=== PATIENT | female | born 1950 | race Caucasian/White ===

== ENCOUNTER 2016-04-18 16:28 | Emergency (ER) | payer OTHER ==
[~2016-04-18] VITALS: Ht 162.6 cm; Wt 99.8 kg
--- NOTE | 2016-04-18 17:15 | ED UPPER/LOWER EXTREMITY COMPL ---
History of Present Illness General Chief Complaint: Lower Extremity Problems Stated Complaint: ? DVT LFT LEG Source: patient Exam Limitations: no limitations Vital Signs & Intake/Output Vital Signs & Intake/Output Vital Signs Date Time Temp Pulse Resp B/P Pulse O2 O2 Flow FiO2 Ox Delivery Rate 04/18 1825 98.7 72 20 128/81 99 Room Air Room Air 04/18 1641 97.2 81 18 124/80 100 Room Air Allergies Coded Allergies: iodine (Intermediate, RASH 04/18/16) Uncoded Allergies: PCN (Intermediate, RASH 04/18/16) Allergy Other CRAB/SHELLFISH Triage Note: SENT BY PMD, C/O FEVER, CHILLS, POOR APPETITE X 3 DAYS, WITH LEFT LOWER LEG SWELLING, REDNESS X 3 DAYS. Triage Nurses Notes Reviewed? yes HPI: This patient is a 65-year-old female with a past medical history including hypertension who presented to the emergency department today for evaluation of left lower leg edema and erythema present in by her primary career technical education instructor. The patient reported that on Saturday and Saturday she was feeling, "lethargic, weak, and chills." She reported tactile fevers. The patient did report some slight nausea, but no vomiting. She denied any abdominal pain, constipation, or diarrhea. The patient reported that on Saturday she started to feel better however, she noticed that her left lower leg was getting swollen and red. She reported that it is more painful when she ambulates or when the area is touched. The pain gets up to a 7 out of 10 and is throbbing. The pain is nonradiating and intermittent. The patient denied any numbness or tingling in her extremities. She reported that 2 years ago she had a knee surgery on her left knee done by clinician in [place] she was uncomplicated. She denied a history of any blood clots. The patient denied any cough, hemoptysis, exogenous estrogen use, or any trauma to the area. (SWAPNIL GOLDMAN,DASIA) Reconcile Medications Doxycycline Hyclate (Vibramycin) 100 MG CAPSULE 1 CAP PO BID CELLULITIS (CATRACHITA URIOSTEGUI DO) Past History Travel History Traveled to [place] past 21 day No Medical History Any Pertinent Medical History? see below for history Neurological: NONE EENT: NONE Cardiovascular: hypertension, hyperlipidemia Respiratory: NONE Gastrointestinal: NONE Hepatic: NONE Renal: NONE Musculoskeletal: NONE Psychiatric: NONE Endocrine: NONE Surgical History Surgical History: LEFT KNEE SURGERY Psychosocial History What is your primary language Occitan Tobacco Use: Never used ETOH Use: occasional use Family History Hx Contributory? No (DASIA KRAFT PA-C) Review of Systems Review of Systems Constitutional: Reports: see HPI. EENTM: Reports: no symptoms. Respiratory: Reports: no symptoms. Cardiovascular: Reports: no symptoms. Gastrointestinal/Abdominal: Reports: see HPI. Genitourinary: Reports: no symptoms. Musculoskeletal: Reports: no symptoms. Skin: Reports: see HPI. Neurological/Psychological: Reports: no symptoms. Hematologic/Endocrine: Reports: no symptoms. All Other Systems: Reviewed and Negative (DASIA KRAFT PA-C) Physical Exam Physical Exam General Appearance: well developed/nourished, no apparent distress, alert, awake Comments: Well-developed well-nourished person in no acute distress HEENT: Normal EENT exam, head normocephalic, moist mucous membranes Neck: Supple. No lymphadenopathy Back: Antalgic gait Cardiovascular: Regular rate and rhythm with no murmurs, rubs, or gallops Respiratory: Chest nontender. No respiratory distress. Breath sounds clear to auscultation bilaterally with no wheezes, rales, rhonchi Left lower extremity: Non-pitting edema to the lower extremity with overlying erythema. Positive Homans sign. Tender to palpation over the calf. Full range of motion at the knee and ankle. Dorsalis pedis and posterior tibialis pulses 2 + and strong Neuro: Alert oriented x3, motor sensory normal, cranial nerves II through XII grossly intact. Skin: No appreciable rash on exposed skin, skin is warm and dry. Psych: Mood and affect is normal (DASIA KRAFT PA-C) Progress Differential Diagnosis: arterial insufficiency, cellulitis, CHF, compartment syndrome, contusion, DVT, gout, septic arthritis, sprain, tendon injury Plan of Care: Orders Procedure Date/time Status COMPREHENSIVE METABOLIC PANEL 04/18 1709 Complete CBC WITHOUT DIFFERENTIAL 04/18 1708 Complete EKG 04/18 1653 Active Laboratory Tests 04/18/16 1715: Anion Gap 11, Estimated GFR > 60, BUN/Creatinine Ratio 18.6, Glucose 88, Calcium 9.3, Total Bilirubin 0.6, AST 40 H, ALT 45, Alkaline Phosphatase 83, Total Protein 7.3, Albumin 4.0, Globulin 3.3, Albumin/Globulin Ratio 1.2, CBC w Diff NO MAN DIFF REQ, RBC 4.98, MCV 89.4, MCH 29.8, RDW 12.8, MPV 7.7, Gran % 55.4, Lymphocytes % 33.0, Monocytes % 10.1 H, Eosinophils % 1.2, Basophils % 0.3, Absolute Granulocytes 5.6, Absolute Lymphocytes 3.3, Absolute Monocytes 1.0 H, Absolute Eosinophils 0.1, Absolute Basophils 0, PUBS MCHC 33.3 Diagnostic Imaging: Viewed by Me: Ultrasound. Discussed w/RAD: Ultrasound. Radiology Impression: PATIENT: ALIN GARCIA PRESENT AGE: 65 PATIENT ACCOUNT NO: [id number] : 52 LOCATION: [facility] ORDERING PHYSICIAN: DASIA KRAFT PA-C SERVICE DATE: 04/18/16 EXAM TYPE: US - US-UNILATERAL VENOUS DOPPLER EXAMINATION: US TRIPLEX LOWER EXTREMITY, LEFT CLINICAL INFORMATION: Edema and swelling. COMPARISON: None. TECHNIQUE: Color- flow triplex imaging with spectral analysis and compression Doppler were performed on the left lower extremity. FINDINGS: Respiratory variation, normal compression and augmented flow are noted throughout the lower extremity. The visualized common femoral vein, proximal greater saphenous vein, femoral vein, profunda femoral vein, popliteal vein and visualized mid calf venous segments show no evidence of deep venous thrombosis. There is no Nieves's cyst. IMPRESSION : Normal triplex scan without evidence of deep venous thrombosis involving the left lower extremity. DICTATED BY: MARS CARDONA MD DATE/TIME DICTATED:04/18/161803 MENTAL HYGIENE CONSULTANT:MARINA DATE/TIME TRANSCRIBED:04/18/161803 CONFIDENTIAL, DO NOT COPY WITHOUT APPROPRIATE AUTHORIZATION. <Electronically signed in Other Vendor System> SIGNED BY: MARS CARDONA MD 04/18/161807 (SWAPNIL GOLDMAN,DASIA) Departure Departure Disposition: HOME OR SELF CARE Condition: Stable Clinical Impression Primary Impression: Cellulitis Qualifiers: Site of cellulitis: extremity Site of cellulitis of extremity: lower extremity Laterality: left Qualified Code: L03.116 - Cellulitis of left lower limb Referrals: ESTELLA BURLESON (PCP/Family) Additional Instructions: Please take antibiotic as prescribed and for its full duration. Call to follow- up with your primary care physician. You may take [id number] ibuprofen or Motrin for pain. Elevate your leg when possible. Return to the emergency department for any worsening symptoms, spreading of redness, fevers, worsening pain, or for any other concerns. Departure Forms: Customer Survey General Discharge Information Prescriptions: Current Visit Scripts Doxycycline Hyclate (Vibramycin) 1 CAP PO BID #20 CAP (DASIA KRAFT PA-C) PA/KITCHEN ASSISTANT Co-Sign Statement Statement: ED Attending supervision documentation- [] I saw and evaluated the patient. I have also reviewed all the pertinent lab results and diagnostic results. I agree with the findings and the plan of care as documented in the PA's/KITCHEN ASSISTANT's documentation. [X] I have reviewed the ED Record and agree with the PA's/KITCHEN ASSISTANT's documentation. [] Additions or exceptions (if any) to the PAs/KITCHEN ASSISTANT's note and plan are summarized below: [] (CATRACHITA URIOSTEGUI DO
[2016-04-18 17:26] LABS: ABSOLUTE BASOPHIL COUNT 0 /CUMM (0.0-0.2); ABSOLUTE EOSINOPHIL COUNT 0.1 /CUMM (0.0-0.7); ABSOLUTE GRANULOCYTE CT 5.6 /CUMM (1.4-6.5); ABSOLUTE LYMPH COUNT 3.3 /CUMM (1.2-3.4); BASOPHIL % 0.3 % (0.0-2.0); EOSINOPHIL % 1.2 % (0-5); GRANULOCYTE % 55.4 % (42.2-75.2); HEMATOCRIT 44.6 % (37-47); MEAN CORPUSCULAR HGB 29.8 PG (27.0-31.0); MEAN CORPUSCULAR HGB CONC 33.3 G/DL (33.0-37.0); MEAN CORPUSCULAR VOLUME 89.4 FL (81.0-99.0); MEAN PLATELET VOLUME 7.7 FL (7.4-10.4); PLATELET COUNT 236 /CUMM (130-400); RBC DISTRIBUTION WIDTH 12.8 % (11.5-14.5); RED BLOOD CELL CT 4.98 /CUMM (4.20-5.40); WHITE BLOOD CELL COUNT 10.1 /CUMM (4.8-10.8)
--- NOTE | 2016-04-18 18:08 | ULTRASOUND REPORT ---
EXAMINATION: US TRIPLEX LOWER EXTREMITY, LEFT CLINICAL INFORMATION: Edema and swelling. COMPARISON: None. TECHNIQUE: Color-flow triplex imaging with spectral analysis and compression Doppler were performed on the left lower extremity. FINDINGS: Respiratory variation, normal compression and augmented flow are noted throughout the lower extremity. The visualized common femoral vein, proximal greater saphenous vein, femoral vein, profunda femoral vein, popliteal vein and visualized mid calf venous segments show no evidence of deep venous thrombosis. There is no Nieves's cyst. IMPRESSION: Normal triplex scan without evidence of deep venous thrombosis involving the left lower extremity.
[2016-04-18] MEDS ORDERED: VIBRAMYCIN100 MG PO (18:17)
[2016-04-18 18:25] VITALS: BP 128/81
== END 2016-04-18 18:26 ==
LOC: ERH 16:28
PROVIDERS: Physician Assistant
DX: L03.116 Cellulitis of left lower limb (principal); R53.1 Weakness; R50.9 Fever, unspecified; R11.0 Nausea
CPT/HCPCS: 93005; 93010

== ENCOUNTER 2017-10-31 15:22 | Inpatient (IN) | payer OTHER, MEDICARE ==
[~2017-10-31] VITALS: Ht 162.6 cm; Wt 114.9 kg
[~2017-10-31 15:22] MED LIST: VIBRAMYCIN100 MG PO
[2017-10-31 16:29] LABS: ABSOLUTE BASOPHIL COUNT 0 /CUMM (0.0-0.2); ABSOLUTE EOSINOPHIL COUNT 0 /CUMM (0.0-0.7); ABSOLUTE GRANULOCYTE CT 19.6 /CUMM (1.4-6.5); ABSOLUTE MONOCYTE COUNT 0.6 /CUMM (0.10-0.60); BASOPHIL % 0.1 % (0.0-2.0); EOSINOPHIL % 0 % (0-5); HEMATOCRIT 39.9 % (37-47); MEAN CORPUSCULAR HGB 29.7 PG (27.0-31.0); MEAN CORPUSCULAR HGB CONC 33.7 G/DL (33.0-37.0); MEAN CORPUSCULAR VOLUME 88.1 FL (81.0-99.0); MEAN PLATELET VOLUME 7.6 FL (7.4-10.4); PLATELET COUNT 208 /CUMM (130-400); RBC DISTRIBUTION WIDTH 13.2 % (11.5-14.5); RED BLOOD CELL CT 4.53 /CUMM (4.20-5.40); WHITE BLOOD CELL COUNT 22.2 /CUMM (4.8-10.8)
[2017-10-31 16:46] LABS: GRANULOCYTE % 88.1 % (42.2-75.2)
--- NOTE | 2017-10-31 17:35 | ULTRASOUND REPORT ---
EXAMINATION: US TRIPLEX LOWER EXTREMITY, LEFT CLINICAL INFORMATION: 67-year-old woman presenting with left lower extremity pain, swelling, and erythema. Positive fever and chills. Previous history of cellulitis. COMPARISON: Left leg venous ultrasound of 04/18/2016. TECHNIQUE: Color-flow triplex imaging with spectral analysis and compression Doppler were performed on the lower extremity. FINDINGS: Respiratory variation, normal compression and augmented flow are noted throughout the lower extremity. The visualized common femoral vein, superficial femoral vein, profunda femoral vein, popliteal vein and midcalf peroneal and posterior tibial venous segments show no evidence of deep venous thrombosis. There is no Nieves's cyst. IMPRESSION: No evidence of deep venous thrombosis involving the left lower extremity.
--- NOTE | 2017-10-31 18:24 | ED GENERAL ADULT ---
History of Present Illness General Chief Complaint: General Adult Stated Complaint: SIB GFP FOR FEVER AND RED LEG S/P TRAVEL Source: patient Exam Limitations: no limitations Allergies Coded Allergies: iodine (Intermediate, RASH 04/18/16) Penicillins (RASH 10/31/17) crab (RASH 10/31/17) Triage Note: 67 Y/O FEMALE C/O REDNESS AND SWELLING TO LLE X 24 HOURS S/P RECENT TRAVEL IN AIRPLANE AND SHUTTLE. PT STATES SHE BEGAN WITH CHILLS LAST EVENING AND DEVELOPED FEVERS, T-MAX 101.5. MEDICATED WITH 975MG TYLENOL AND ZOFRAN IN TRIAGE PER HOLLIE HOLDEN. Triage Nurses Notes Reviewed? yes Onset: Abrupt Duration: day(s): (2), constant, continues in ED, getting worse Timing: single episode today Injury Environment: home Severity: moderate, severe Severity Numbers: 6 No Modifying Factors: none Associated Symptoms: fever LMP (ages 10-50): unknown : No Patient currently breastfeeds: No HPI: 67-year-old female history of hypertension hyperlipidemia process or evaluation of pain swelling and redness in her left lower extremity. Patient states she first noticed this yesterday and has been getting worse. The redness spread from her mid ankle to just below her knee. She reports that she recently returned from a long plane ride from vacation before symptoms started. She reports she's had fever at home up to 101. She denies any trauma or recent surgery no history of DVT. She is not diabetic. She had a similar situation last year that was treated with doxycycline. No chest pain or shortness of breath. (Rebel BROWNE,Buck) Vital Signs & Intake/Output Vital Signs & Intake/Output Vital Signs Date Time Temp Pulse Resp B/P B/P Pulse O2 O2 Flow FiO2 Mean Ox Delivery Rate 10/31 1920 Room Air 10/31 1811 98.1 78 18 120/56 95 10/31 1542 99.9 10/31 1535 99.9 97 16 134/62 98 Room Air Reconcile Medications Aspirin (Ecotrin*) 81 MG TABLET. 1 TAB PO QPM HEART/BLOOD (Reported) Multiple Vitamin (Multivitamins) 1 EACH TABLET 1 TAB PO QAM SUPPLEMENT ( Reported) (Anila JASSO,Derick Corea) Past History Travel History Traveled to [place] past 21 day No Medical History Any Pertinent Medical History? see below for history Neurological: NONE EENT: NONE Cardiovascular: hypertension, hyperlipidemia Respiratory: NONE Gastrointestinal: NONE Hepatic: NONE Renal: NONE Musculoskeletal: NONE Psychiatric: NONE Endocrine: NONE Surgical History Surgical History: LEFT KNEE SURGERY Psychosocial History What is your primary language Mauritian Tobacco Use: Never used Family History Hx Contributory? No (Buck Sargent) Review of Systems Review of Systems Constitutional: Reports: no symptoms. EENTM: Reports: no symptoms. Respiratory: Reports: no symptoms. Cardiovascular: Reports: no symptoms. GI: Reports: no symptoms. Genitourinary: Reports: no symptoms. Musculoskeletal: Reports: no symptoms. Skin: Reports: see HPI, erythema. Neurological/Psychological: Reports: no symptoms. Hematologic/Endocrine: Reports: no symptoms. Immunologic/Allergic: Reports: no symptoms. All Other Systems: Reviewed and Negative (Buck Sargent) Physical Exam Physical Exam General Appearance: well developed/nourished, no apparent distress, alert, awake Head: atraumatic, normal appearance Eyes: Bilateral: normal appearance, PERRL, EOMI. Ears, Nose, Throat: hearing grossly normal Neck: normal inspection, supple, full range of motion Respiratory: normal breath sounds, chest non-tender, no respiratory distress, lungs clear Cardiovascular: regular rate/rhythm, normal peripheral pulses Peripheral Pulses: 2+ radial (R), 2+ radial (L), 1+ tibialis posterior (R), 1+ tibialis posterior ( L), 1+ dorsalis pedis (R), 1+ dorsalis pedis (L) Gastrointestinal: soft, non-tender Back: normal inspection, normal range of motion, no vertebral tenderness Extremities: normal range of motion, the left lower extremity is diffusely swollen. There is erythema that spreads from the mid ankle to just below the knee. Full range of motion intact neurovascular supply attacked is no focal fluctuant areas no discharge Neurologic/Psych: no motor/sensory deficits, awake, alert, oriented x 3, normal gait, normal mood/affect Skin: intact, normal color, warm/dry Core Measures ACS in differential dx? No CVA/TIA Diagnosis: No Sepsis Present: No Sepsis Focused Exam Completed? Yes (Buck Sargent) ED Sepsis Exam Date of Focused Sepsis Exam: 10/31/17 Time of Focused Sepsis Exam: 1936 Sepsis Cardiac Exam: Regular Rate/Rhythm Sepsis Resp Exam: Rales Sepsis Cap Refill Exam: <2 Sec Sepsis Peripheral Pulse Exam: Normal Sepsis Peripheral Pulse Location: Radial Sepsis Skin Color Exam: Normal for Ethnicity Skin Temp/Moisture Exam: Warm/Dry (Buck Sargent) Progress Differential Diagnoses I considered the following diagnoses in my evaluation of the patient: [ Cellulitis, DVT, rhabdo, abscess, sepsis] Diagnostic Imaging: Viewed by Me: Ultrasound. Discussed w/RAD: Ultrasound. Radiology Impression: PATIENT: ALIN GARCIA PRESENT AGE: 67 PATIENT ACCOUNT NO: [id number] : 52 LOCATION: [facility] ORDERING PHYSICIAN: Buck BROWNE SERVICE DATE: 10/31/17 EXAM TYPE: US - US- DUPLEX VENOUS EXTREM UNI EXAMINATION: US TRIPLEX LOWER EXTREMITY, LEFT CLINICAL INFORMATION: 67-year-old woman presenting with left lower extremity pain, swelling, and erythema. Positive fever and chills. Previous history of cellulitis. COMPARISON: Left leg venous ultrasound of 04/18/2016. TECHNIQUE: Color-flow triplex imaging with spectral analysis and compression Doppler were performed on the lower extremity. FINDINGS: Respiratory variation, normal compression and augmented flow are noted throughout the lower extremity. The visualized common femoral vein, superficial femoral vein, profunda femoral vein, popliteal vein and midcalf peroneal and posterior tibial venous segments show no evidence of deep venous thrombosis. There is no Nieves's cyst. IMPRESSION: No evidence of deep venous thrombosis involving the left lower extremity. DICTATED BY: Christiano Garg MD DATE/TIME DICTATED:10/31/171729 PROJECT MGR:MARINA DATE/TIME TRANSCRIBED:10/31/171729 CONFIDENTIAL, DO NOT COPY WITHOUT APPROPRIATE AUTHORIZATION. <Electronically signed in Other Vendor System> SIGNED BY: Christiano Garg MD 10/31/171734 Initial ED EKG: normal sinus rhythm, no ST T wave changes (Buck Sargent) Plan of Care: Orders Procedure Date/time Status Heart Healthy Diet 11/01 B Active Misc Message 10/31 1932 Active ED Holding Orders 10/31 1932 Active Admit to inpatient 10/31 1932 Active Vital Signs 10/31 1932 Active Code Status 10/31 1932 Active Patient Data 10/31 1901 Active LACTIC ACID 10/31 1837 Active Add-on Test (ER Only) 10/31 1800 Active Add-on Test (ER Only) 10/31 175 Active EKG 10/31 175 Active SERUM OSMOLALITY 10/31 161 Complete MAGNESIUM 10/31 161 Complete CREATINE PHOSPHOKINASE 10/31 153 Active BLOOD CULTURE 10/31 153 Active URINE OSMOLALITY 10/31 153 Active URINE LYTES, SPOT 10/31 153 Active TROPONIN LEVEL 10/31 153 Complete LACTIC ACID 10/31 153 Complete COMPREHENSIVE METABOLIC PANEL 10/31 153 Complete CBC WITHOUT DIFFERENTIAL 10/31 153 Complete Current Medications Sig/Cheikh Start time Last Medication Dose Stop Time Status Admin Ceftriaxone Sodium 1,000 MG ONCE ONE 10/31 1744 CAN (Rocephin) 10/31 174 Laboratory Tests 10/31/17 1613: Anion Gap 9, Estimated GFR > 60, BUN/Creatinine Ratio 15.6, Glucose 106 H, Serum Osmolality 273 L, Lactic Acid 1.0, Calcium 8.2 L, Magnesium 1.7, Total Bilirubin 1.1, AST 34, ALT 37, Alkaline Phosphatase 64, Troponin I 0.02, Total Protein 6.3, Albumin 3.3 L, Globulin 3.0, Albumin/Globulin Ratio 1.1, CBC w Diff NO MAN DIFF REQ, RBC 4.53, MCV 88.1, MCH 29.7, MCHC 33.7, RDW 13.2, MPV 7.6 , Gran % 88.1 H, Lymphocytes % 9.1 L, Monocytes % 2.7, Eosinophils % 0, Basophils % 0.1, Absolute Granulocytes 19.6 H, Absolute Lymphocytes 2.0, Absolute Monocytes 0.6, Absolute Eosinophils 0, Absolute Basophils 0 Microbiology 10/31 161 BLOOD: Blood Culture - RECD 10/31 160 BLOOD: Blood Culture - RECD Patient is here with cellulitis of her left lower extremity. She does have a low-grade temp of 99 9 here. An ultrasound was ordered to rule out DVT and is negative. Labs EKG ordered. Patient has a white count of 22,000. Her potassium is 3 sodium 128. No EKG changes. Lactic acid is negative. IV fluids were ordered patient was started on IV doxycycline she has a penicillin allergy. Due to patient's fever white count of 22,000 showed abnormalities and advanced age she'll be kept in the hospital for further evaluation and treatment of cellulitis. She will require serial labs IV fluids IV antibiotics IV antipyretics follow-up blood cultures. Case discussed with Dr. High he agrees. (Buck Sargent) (Anila JASSO,Derick Corea) Departure Departure Disposition: STILL A PATIENT Condition: Stable Clinical Impression Primary Impression: Cellulitis Qualifiers: Site of cellulitis: extremity Site of cellulitis of extremity: lower extremity Laterality: left Qualified Code: L03.116 - Cellulitis of left lower limb Referrals: Yue Martinez (PCP/Family) Departure Forms: Customer Survey General Discharge Information Admission Note Spoke With: Owen Estrada MD Documentation of Exam: Documentation of any treatments & extenuating circumstances including Concerns Regarding Discharge (functional status, medication knowledge or non-compliance, living conditions, etc.) that warrant an admission rather than observation: [ Serial labs, IV antibiotics, IV fluids, follow-up cultures, antipyretics] (Buck Sargent) PA/ATMOSPHERIC PHYSICIST Co-Sign Statement Statement: ED Attending supervision documentation- [X] I saw and evaluated the patient. I have also reviewed all the pertinent lab results and diagnostic results. I agree with the findings and the plan of care as documented in the PA's/ATMOSPHERIC PHYSICIST's documentation. Patient presents for evaluation of left lower extremity redness and swelling after plane travel. Physical examination reveals edema and erythema of the left lower extremity. [] I have reviewed the ED Record and agree with the PA's/ATMOSPHERIC PHYSICIST's documentation. [] Additions or exceptions (if any) to the PAs/ATMOSPHERIC PHYSICIST's note and plan are summarized below: [] (Derick High MD) Critical Care Note Critical Care Note Critical Care Time: non-applicable (Buck Sargent)
[2017-10-31] MEDS ORDERED: MULTIVITAMINS1 EAC9 PO (18:56)
[2017-10-31] MEDS ORDERED: ASPIRIN EC81 M1 PO (18:56)
--- NOTE | 2017-10-31 19:42 | History & Physical ---
Moises De La Cruz 10/31/171940: General Information and HPI MD Statement: I have seen and personally examined MIRANDA GARCIA and documented this H&P. The patient is a 67 year old F who presented with a patient stated chief complaint of [LLE swelling x24 hours]. Source of Information: patient, old records Exam Limitations: no limitations History of Present Illness: Miranda Garcia is a 67 Y/O female PMH HTN HLD c/o redness and swelling to LLE x 24 hours s/p recent travel in airplane and shuttle. Pt states she began with chills last evening and developed fevers but did not record them at home as her thermometer was broken. States her leg was swollen and tender, red, yesterday as well at onset of chills. Denies any recent punctures/lacerations; says she has not recently shaved her legs. Was recently in [place], a 2.5 hour flight to [place] and came back on Saturday although was sitting in plane for longer due to weather. She went to her PCP office the day of admission as her symptoms worsened over 24 hours, where t-max was 101.5 and they sent her to the ED for evaluation. Has a history of Cellulitis to LLE most notably treated in Apr 10 with doxycycline as she has an allergy to penicillins. Also states that her HCTZ dose was doubled recently as her blood pressure was no longer well controlled per PCP. PMH: as above Allergies: PCN (rash), Iodine, Crab MEDS: ASA 81mg, MVI SX: L knee surgery 3 years ago ; Back surgery ; Neck Surgery Fam HX: noncontributory SOC: denies smoking, drinks wine socially, no illicit drug use, was a restaurant rink rat retired now ROS Positive for: Chills, Fevers, Redness, Warmth, Swelling, Decreased sensation Negative for: Drainage, Purulence, Chest pain, SOB, N/V/D Allergies/Medications Allergies: Coded Allergies: iodine (Intermediate, RASH 04/18/16) Penicillins (RASH 10/31/17) crab (RASH 10/31/17) Past History Travel History Traveled to [facility] past 21 day No Medical History Neurological: NONE EENT: NONE Cardiovascular: hypertension, hyperlipidemia Respiratory: NONE Gastrointestinal: NONE Hepatic: NONE Renal: NONE Musculoskeletal: NONE Psychiatric: NONE Endocrine: NONE Surgical History Surgical History: LEFT KNEE SURGERY Review of Systems Review of Systems Constitutional: Reports: see HPI, chills, fever. Exam & Diagnostic Data Last 24 Hrs of Vital Signs/I&O Vital Signs Date Time Temp Pulse Resp B/P B/P Pulse O2 O2 Flow FiO2 Mean Ox Delivery Rate 10/31 2228 Room Air 10/31 2215 98.4 82 17 114/54 96 Room Air 10/31 2215 98.4 82 17 114/54 96 Room Air 10/31 1920 Room Air 10/31 1811 98.1 78 18 120/56 95 10/31 1542 99.9 10/31 1535 99.9 97 16 134/62 98 Room Air Intake & Output 11/01 0800 11/01 0000 10/31 1600 Intake Total 1110 Output Total 700 Balance 410 Intake, IV 1110 Output, Urine 700 Patient 253 lb 225 lb Weight Weight Bed scale Reported by Patient Measurement Method Physical Exam General Appearance Alert, Oriented X3, Cooperative, No Acute Distress Skin LLE redness, swelling, tenderness; no discharge noted Skin Temp/Moisture Exam: Warm/Dry HEENT Atraumatic Neck Supple Cardiovascular Regular Rate, Normal S1, Normal S2 Lungs Clear to Auscultation, Normal Air Movement Abdomen Soft, No Tenderness Neurological Strength at 5/5 X4 Ext, decreased sensation LLE medial lateral aspects of foot Assessment/Plan Assessment: Miranda Garcia is a 67 Y/O female PMH HTN HLD c/o redness and swelling to LLE x 24 hours s/p recent travel in airplane and shuttle. Pt states she began with chills last evening and developed fevers but did not record them at home as her thermometer was broken. States her leg was swollen and tender, red, yesterday as well at onset of chills. Tmax of 101.5 at PCPs office. Is admitted for treatment of LLE cellulitis. Problem list/Assessment/Hospital Course: #Sepsis 2/2 LLE cellulitis (leukocytosis, fever at home, source of infection), resolved on admission #Left lower extremity nonpurulent cellulitis #Hypotonic hyponatremia, likely from dehydration 2/2 fever at home + use of HCTZ #Hypokalemia, unknown etiology #PMH of HTN, HLD #LLE Cellulitis -Pt has penicillin allergy, thus is on IV doxycycline -F/u CBC, blood cultures -ID consult in AM per primary teams discretion #Hyponatremia -We will continue bolus 1+ gentle hydration 100 cc/h -We will check serum osmole, urine lites, urine osm. - Continue all home meds except holding HCTZ till sodium normalizes. DVT prophylaxis Pharm PPX + ALPS Regular Diet IV Access: Peripheral IV Full Code Dispo: Home As Ranked By This Provider Problem List: 1. Cellulitis Qualifiers Site of cellulitis: extremity Site of cellulitis of extremity: lower extremity Laterality: left Qualified Code: L03.116 - Cellulitis of left lower limb Core Measures/Misc (12/09) Acute Coronary Syndrome ACS Diagnosis: No Congestive Heart Failure Congestive Heart Failure Diagnosis No Cerebrovascular Accident CVA/TIA Diagnosis: No VTE (View Protocol) VTE Risk Factors Age>40 No Mechanical VTE Prophylaxis d/t N/A MechProphylax Ordered No VTE Pharm Prophylaxis d/t NA PharmProphylax ordered Sepsis (View protocol) Sepsis Present: No (resolved prior to admission) If YES complete Sepsis Event Note If YES complete Sepsis Event Note Aileen Diaz 10/31/172028: General Information and HPI Allergies/Medications Home Med list Aspirin (Ecotrin*) 81 MG TABLET.DR 1 TAB PO QPM HEART/BLOOD (Reported) Hydrochlorothiazide 12.5 MG TABLET 2 TAB PO DAILY BP (Reported) Meloxicam (Mobic) 7.5 MG TABLET 1 TAB PO DAILY PRN PAIN/INFLAMMATION ( Reported) Metoprolol Succ XL (Toprol XL) 25 MG TAB 1 TAB PO DAILY HEART/BP (Reported) Multiple Vitamin (Multivitamins) 1 EACH TABLET 1 TAB PO QAM SUPPLEMENT ( Reported) Simvastatin (Zocor*) 20 MG TABLET 1 TAB PO DAILY CHOLESTEROL (Reported) Tramadol HCl 50 MG TABLET 1 TAB PO BID PRN PAIN (Reported) Core Measures/Misc (12/09) Sepsis (View protocol) If YES complete Sepsis Event Note If YES complete Sepsis Event Note Resident Review Statement Resident Statement: examined this patient, discussed with biomedical engineering internship, agreed with biomedical engineering internship, discussed with family, reviewed EMR data (avail), discussed with nursing , discussed with case mgmt, reviewed images, amended to note Other Findings: Ms. Garcia is a 67yo F w/ PMH of HTN, HLD, penicillin allergy, presented to ER cc of pain/swelling/redness of her LLE x 2 days and worseing by spreading from her mid-ankle to below her knee. She endorse a long flight >4hrs from vacation before symptoms started. SHe also had a fever of 101.2 at PCP's office however was not spiking a fever in ER. Rest of history per HPI above During our clinical interaction, patient denied sick contacts, lightheadedness/ diaphoresis/night sweat/weight change/cough/SOB/Chest Pain/Palpitation/Abdominal pain/CVA tenderness/bowel movement or urinary abnormality, or other skin/ musculoskeletal/neurological/mood disorders, or dietary/appetite change. On admission, Vitals: Stable afebrile, tachycardia 97-78, RR 18, BP 120/56, 95% on room air Physical exam as above. Pertinent findings include LLE diffuse redness and erythematous skin without noticeable breakdown/cut, tender on palpation around 5 -6/10, sensations mildly decreased however not lost. BLEs strength grossly intact. -CBC: Leukocytosis 22.2, otherwise stable, granulocytosis 88.1% -CMP: Hyponatremia 128, hypokalemia 3.0, otherwise unremarkable -UA/Microbiology: No previous positive culture in our system. Y -Imagings: Ultrasound has ruled out DVT -EKG: NSR w/o significant ST-T abnormalities, unchanged from previous. -Last Echo: No previous echo -Interventions in ER: Doxycycline IV 1, normal saline bolus 1, Zofran/acetaminophen/K-Dur Problem list/Assessment/Hospital Course: #Sepsis 2/2 LLE cellulitis (leukocytosis, fever at home, source of infection), resolved on admission #Left lower extremity nonpurulent cellulitis #Hypotonic hyponatremia, likely from dehydration 2/2 fever at home + use of HCTZ #Hypokalemia, unknown etiology #PMH of HTN, HLD - Admit to general medicine - Vitals per protocol, monitor I&O per protocol. - PT/OT in the AM per primary team -We will continue bolus 1+ gentle hydration 100 cc/h -We will check serum osmole, urine lites, urine osm. - Start doxycycline as patient has penicillin allergy and taper per clinical course. - Continue all home meds except holding HCTZ till sodium normalizes. -Consider ID consult in a.m. per primary team if needed - Pending cultures including blood. - Pain per pathway DVT prophylaxis Pharm PPX + ALPS Regular Diet IV Access: Peripheral IV Full Code Dispo: Owen Belle MD 11/01/17 0547: Core Measures/Misc (12/09) Sepsis (View protocol) If YES complete Sepsis Event Note If YES complete Sepsis Event Note Attending MD Review Statement Attending Statement Attending MD Statement: examined this patient, discuss w/resident/PA/CORPORATE SECURITIES RESEARCH ANALYST, agreed w/resident/PA/CORPORATE SECURITIES RESEARCH ANALYST Attending Assessment/Plan: Patient is seen and examined independently by me. Care plan discussed with biomedical field service engineer and resident. I agree with the physical exam findings and plan of care as outlined above with the following changes and additions. 67 yo F with history of HTN on HCTZ, HLD, left LE cellulitis in 03/2016 treated with doxycycline, presented with left leg redness and swelling for one day. Redness extending from left ankle to left knee. There is no obvious cuts, skin break or insect bite. She has fever and chills at home but did not check temp at home. She is noted to have Temp of 101.5 at PCP office and sent to ED for evaluation. She has recent travel to [place] and returned on Saturday. Her HCTZ dose was doubles a month ago. On exam, she has erythema, warmth and edema extending from left ankle to left knee. In the ED, Tmax 99.9. WBC 22.2. Na 128. K 3.0. BUN/Cr 14/0.9. Left LE Doppler shows no DVT. EKG shows NSR at [address]-T changes. Patient is admitted to [facility] for left LE cellulitis, hyponatremia and hypokalemia in the setting of increasing HCTZ dose. Check blood cultures. Start doxycycline. Hold HCTZ. Patient got 1 L of NS and KCL 40 eEq PO in the ED. Oral fluid restriction. Follow Na and K. Owen Estrada MD FACP
[2017-10-31] MEDS ORDERED: TRAMADOL HCL50 M1 PO (19:45)
[2017-10-31] MEDS ORDERED: HYDROCHLOROTH12.5 M2 PO (19:45)
[2017-10-31] MEDS ORDERED: MOBIC7.5 M1 PO (19:45)
[2017-10-31] MEDS ORDERED: ZOCOR20 M1 PO (19:46)
[2017-10-31] MEDS ORDERED: TOPROL XL25 M1 PO (19:46)
[2017-10-31 22:15] VITALS: BP 114/54
[2017-11-01 06:42] VITALS: BP 116/70
[2017-11-01 07:46] LABS: ABSOLUTE BASOPHIL COUNT 0.1 /CUMM (0.0-0.2); ABSOLUTE EOSINOPHIL COUNT 0 /CUMM (0.0-0.7); ABSOLUTE GRANULOCYTE CT 13.6 /CUMM (1.4-6.5); ABSOLUTE MONOCYTE COUNT 0.7 /CUMM (0.10-0.60); BASOPHIL % 0.4 % (0.0-2.0); EOSINOPHIL % 0 % (0-5); GRANULOCYTE % 83.5 % (42.2-75.2); MEAN CORPUSCULAR HGB CONC 33.4 G/DL (33.0-37.0); MEAN CORPUSCULAR VOLUME 89.8 FL (81.0-99.0); MEAN PLATELET VOLUME 8.5 FL (7.4-10.4); PLATELET COUNT 177 /CUMM (130-400); RBC DISTRIBUTION WIDTH 13.3 % (11.5-14.5); RED BLOOD CELL CT 4.12 /CUMM (4.20-5.40)
--- NOTE | 2017-11-01 08:52 | PN- Housestaff ---
Robert Rebolledo 11/01/17 0844: Subjective Follow-up For: LL cellulitis, Complaints: Mild pain in left leg on ambulation Subjective: Patient seen and examined at bed. There is no overnight event.Her pain in the left leg subsided compared to yesterday. She complained mild pain in ambulation. She said she had a fever and shivering episodes but after Tylenol subsided now. She denies abdominal pain, burning micturition, palpitation, chest pain, shortness, diarrhea. Review of Systems Constitutional: Reports: see HPI. Objective Last 24 Hrs of Vital Signs/I&O Vital Signs Date Time Temp Pulse Resp B/P B/P Pulse O2 O2 Flow FiO2 Mean Ox Delivery Rate 11/02 1450 97.8 75 18 120/80 95 Room Air 11/02 0838 74 133/63 11/02 0706 98.2 74 18 133/63 98 Room Air 11/01 2129 98.6 85 18 117/72 97 Room Air Intake & Output 11/02 1600 11/02 0800 11/02 0000 Intake Total 6318 881 7508 Output Total Balance 5691 135 8938 Intake, IV 525 600 525 Intake, Oral 650 120 480 Physical Exam General Appearance: Alert, Oriented X3, Cooperative, No Acute Distress Assessment/Plan Assessment: 67 year of age female with past medical history of HTN, HLD, Pencillin allergy presented to emergency departement with chief complaint of redness and LLE swelling. Redness from ankle to thigh since 24 hours. She correlate it with recent history of travel in airplane and shuttle for 22 hour. At the time of presentaion to PCP office her Tmax was 101.5F. Problem list/Assessment/: =Sepsis LLE cellulitis =Left lower extremity nonpurulent cellulitis = Hypotonic hyponatremia =PMH of HTN, HLD =LLE Cellulitis -Pt has penicillin allergy, thus is on IV doxycycline. She was also treated for cellulitis in 2017 with doxycyclin. -F/u CBC, blood cultures -ID consult =Hyponatremia -Gentle hydration done in ER will give castañeda fluid as needed. -We will check serum osmole, urine lites, urine osm. - Continue all home meds except holding HCTZ till sodium normalizes. =Hyponatremia: Its may be due to fever, HCTZ. Gentle hydration will cover it. =GI/DVT prophylaxis =Regular Diet =Full Code Problem List: 1. Cellulitis Pain Ratin Pain Location: n/a Pain Goal: Remain pain free Pain Plan: n/a Tomorrow's Labs & Rationales: n/a [place] 11/01/17 1025: Attending MD Review Statement Attending Statement Attending MD Statement: examined this patient, discuss w/resident/PA/CAN REFORMING MACHINE OPERATOR, agreed w/resident/PA/CAN REFORMING MACHINE OPERATOR, discussed with family, reviewed EMR data (avail), discussed with nursing, discussed with case mgmt, reviewed images, amended to note Attending Assessment/Plan: 67 yo F with history of HTN on HCTZ, HLD, left LE cellulitis in 03/2016 treated with doxycycline, presented with left leg redness and swelling for one day. Redness extending from left ankle to left knee. On exam, she has erythema, warmth and edema extending from left ankle to left knee. WBC 22, Tmax 102.4 Left LE Doppler shows no DVT. Patient is admitted to [facility] for left LE cellulitis meeting SIRS criteria in the setting of increasing HCTZ dose, continue iv abx, Follow blood cultures. Montitor labs. Hypertension c/w metoprolol, monitor bp Hyponatremia with improvement: Held HCTZ. Na 130 BMI 43.5 obesity. Avised dietary and lifestyle modifications gi/dvt prophyalxis full code
[2017-11-01 09:20] LABS: WHITE BLOOD CELL COUNT 16.3 /CUMM (4.8-10.8)
[2017-11-01 14:41] VITALS: BP 122/76
[2017-11-01 21:29] VITALS: BP 117/72
[2017-11-02 07:06] VITALS: BP 133/63
[2017-11-02 08:54] LABS: ABSOLUTE BASOPHIL COUNT 0 /CUMM (0.0-0.2); ABSOLUTE EOSINOPHIL COUNT 0.1 /CUMM (0.0-0.7); ABSOLUTE GRANULOCYTE CT 5.4 /CUMM (1.4-6.5); ABSOLUTE LYMPH COUNT 2.5 /CUMM (1.2-3.4); ABSOLUTE MONOCYTE COUNT 0.8 /CUMM (0.10-0.60); BASOPHIL % 0.6 % (0.0-2.0); EOSINOPHIL % 1.7 % (0-5); HEMATOCRIT 35.7 % (37-47); MEAN CORPUSCULAR HGB 30.2 PG (27.0-31.0); MEAN CORPUSCULAR HGB CONC 33.3 G/DL (33.0-37.0); MEAN CORPUSCULAR VOLUME 90.6 FL (81.0-99.0); MEAN PLATELET VOLUME 8.5 FL (7.4-10.4); PLATELET COUNT 168 /CUMM (130-400); RBC DISTRIBUTION WIDTH 13.1 % (11.5-14.5); RED BLOOD CELL CT 3.94 /CUMM (4.20-5.40); WHITE BLOOD CELL COUNT 8.9 /CUMM (4.8-10.8)
--- NOTE | 2017-11-02 09:16 | PN- Housestaff ---
Louisa Baires 11/02/17 0916: Subjective Follow-up For: LLE cellulitis Subjective: Patient was seen and examined at bedside. She was concerned that the swelling in her leg has increased and wanted to know her labs to see if the antibiotics were working. She complained of nausea before her breakfast in the morning. She denies fever, chills, plapitations, vomiting, chest pain or shortness of breath. Review of Systems Constitutional: Reports: see HPI. Objective Last 24 Hrs of Vital Signs/I&O Vital Signs Date Time Temp Pulse Resp B/P B/P Pulse O2 O2 Flow FiO2 Mean Ox Delivery Rate 11/02 1450 97.8 75 18 120/80 95 Room Air 11/02 0838 74 133/63 11/02 0706 98.2 74 18 133/63 98 Room Air 11/01 2129 98.6 85 18 117/72 97 Room Air Intake & Output 11/02 1600 11/02 0800 11/02 0000 Intake Total 9968 703 5670 Output Total Balance 0657 290 8795 Intake, IV 525 600 525 Intake, Oral 650 120 480 Physical Exam General Appearance: Alert, Oriented X3, Cooperative, No Acute Distress Skin: No Rashes, No Breakdown, Diffuse erythema and swelling on LLE, not tender to touch Neck: Supple Cardiovascular: Regular Rate, Normal S1 Lungs: Clear to Auscultation Abdomen: Normal Bowel Sounds, Soft, No Tenderness Assessment/Plan Assessment: Miranda Hare is a 67 Y/O female PMH HTN HLD c/o redness and swelling to E is admitted for LLE cellulitis. On exmaination, LLE is swollen and erythematous. She states that the affected area is essentially numb. She also reports occassional parathesias in the leg. Problem list/Assessment/Hospital Course: 1.Sepsis 2/2 LLE cellulitis (leukocytosis, fever at home, source of infection), resolved on admission 2.Left lower extremity nonpurulent cellulitis 3,Hypotonic hyponatremia, likely from dehydration 2/2 fever at home + use of HCTZ 4.Hypokalemia, unknown etiology 5.PMH of HTN, HLD 1.LLE Cellulitis -Pt has penicillin allergy, thus is on IV doxycycline -CBC down to 8.0 -Blood cultures came back negative 2.Hyponatremia -We will discontue the fluids since the patient is earing and drinking well. -Na is 137 today -Continue all home meds except holding HCTZ till sodium normalizes. DVT prophylaxis Pharm PPX + ALPS Regular Diet IV Access: Peripheral IV Full Code Dispo: Home Problem List: 1. Cellulitis Pain Ratin Pain Location: LLE Pain Goal: Pain 4 or less Pain Plan: pathway Tomorrow's Labs & Rationales: cbc and bep Ken JASSO,Amir 11/02/17 1544: Attending MD Review Statement Attending Statement Attending MD Statement: examined this patient, discuss w/resident/PA/METAL WIRE TECHNICIAN, agreed w/resident/PA/METAL WIRE TECHNICIAN, reviewed EMR data (avail), discussed with nursing Attending Assessment/Plan: pt was seen and evaluated. Chart reviewed. Reports doing better. LE swelling sl improving on current meds. --replete lytes, switch to PO abx --advised to elevate legs --rest of the plan as per resident's note
[2017-11-02 14:50] VITALS: BP 120/80
[2017-11-02 20:59] VITALS: BP 130/80
[2017-11-03 06:43] VITALS: BP 137/67
[2017-11-03 08:25] LABS: ABSOLUTE BASOPHIL COUNT 0.1 /CUMM (0.0-0.2); ABSOLUTE EOSINOPHIL COUNT 0.2 /CUMM (0.0-0.7); ABSOLUTE GRANULOCYTE CT 3.9 /CUMM (1.4-6.5); ABSOLUTE LYMPH COUNT 2.9 /CUMM (1.2-3.4); ABSOLUTE MONOCYTE COUNT 0.7 /CUMM (0.10-0.60); BASOPHIL % 0.8 % (0.0-2.0); EOSINOPHIL % 2.3 % (0-5); HEMATOCRIT 34.5 % (37-47); MEAN CORPUSCULAR HGB 30.6 PG (27.0-31.0); MEAN CORPUSCULAR VOLUME 89.9 FL (81.0-99.0); MEAN PLATELET VOLUME 8.3 FL (7.4-10.4); PLATELET COUNT 206 /CUMM (130-400); RBC DISTRIBUTION WIDTH 13.3 % (11.5-14.5); RED BLOOD CELL CT 3.83 /CUMM (4.20-5.40); WHITE BLOOD CELL COUNT 7.7 /CUMM (4.8-10.8)
--- NOTE | 2017-11-03 09:02 | PN- Housestaff ---
Louisa Baires 11/03/17 0902: Subjective Follow-up For: LLE Cellulitis Subjective: Patient was seen and examined at bedside. She was sititng up with her leg elevated. She reports that her leg looks a lot better but the swelling is incresing. She also reports numbness in her leg as compared to the right leg. She also complains that her leg turns purple if she stands up and tries to walk around. However, she denies fever, chills, nausea, vomiting, chest pain, shortness of breath. Review of Systems Constitutional: Reports: see HPI. Objective Last 24 Hrs of Vital Signs/I&O Vital Signs Date Time Temp Pulse Resp B/P B/P Pulse O2 O2 Flow FiO2 Mean Ox Delivery Rate 11/03 1418 98.2 86 17 148/80 96 Room Air 11/03 0825 86 146/90 11/03 0643 98.4 77 18 137/67 97 Room Air 11/02 2059 98.1 80 16 130/80 98 Room Air Intake & Output 11/03 1600 11/03 0800 11/03 0000 Intake Total 1120 Output Total Balance 1120 Intake, IV 230 Intake, Oral 890 Physical Exam General Appearance: Alert, Oriented X3, Cooperative, No Acute Distress Skin: erythema in the LLE improved from yestreday. Swelling 3+ Neck: Supple Cardiovascular: Regular Rate, Normal S1, Normal S2 Lungs: Clear to Auscultation Abdomen: Normal Bowel Sounds, Soft, No Tenderness Assessment/Plan Assessment: Miranda Hare is a 67 Y/O female PMH HTN HLD c/o redness and swelling to [facility] is admitted for LLE cellulitis. On exmaination, LLE is swollen and erythematous. She states that the affected area is essentially numb. She also reports occassional parathesias in the leg. Problem list/Assessment/Hospital Course: 1.Sepsis 2/2 LLE cellulitis (leukocytosis, fever at home, source of infection), resolved on admission 2.Left lower extremity nonpurulent cellulitis 3,Hypotonic hyponatremia, likely from dehydration 2/2 fever at home + use of HCTZ 4.Hypokalemia, unknown etiology 5.PMH of HTN, HLD 1.LLE Cellulitis -Pt has penicillin allergy, thus is on IV doxycycline -WBC down to 7.7 -Blood cultures came back negative -We will observe her for one more day for swelling and parathesia in her leg 2.Hyponatremia -We will discontue the fluids since the patient is earing and drinking well. -Na is 40 today -Continue all home meds except holding HCTZ till sodium normalizes. She is likely to be discharged tomorrow. DVT prophylaxis Pharm PPX + ALPS Regular Diet IV Access: Peripheral IV Full Code Dispo: Home Problem List: 1. Cellulitis 2. Hyponatremia Pain Ratin Pain Location: LLE Pain Goal: Pain 4 or less Pain Plan: pathway Tomorrow's Labs & Rationales: cbc and bep Ken JASSO,Amir 11/03/17 1318: Attending MD Review Statement Attending Statement Attending MD Statement: examined this patient, discuss w/resident/PA/COMPLIANCE AUDITOR, agreed w/resident/PA/COMPLIANCE AUDITOR, reviewed EMR data (avail), discussed with nursing Attending Assessment/Plan: Pt was seen and evalauted. Chart reviewed. remains afebrile, WBC stable --cont abx course --likely d/c in am --advised to keep leg elevated --rest of the plan as per resident's note
[2017-11-03 14:18] VITALS: BP 148/80
[2017-11-03 20:44] VITALS: BP 124/88
[2017-11-04 06:58] VITALS: BP 150/80
[2017-11-04 08:32] VITALS: BP 138/78
--- NOTE | 2017-11-04 08:39 | PN- Housestaff ---
Robert Rebolledo 11/04/17 0835: Subjective Follow-up For: Left lower extremity cellulitis Subjective: Patient seen and examined at bedside. She woke up when I entered the room. She is complaining of pain in calf muscles of the left leg on palpation. She has been no active complaint. She denies fever, chills, chest pain, cough, diarrhea , burning micturition. Review of Systems Constitutional: Reports: see HPI. Objective Last 24 Hrs of Vital Signs/I&O Vital Signs Date Time Temp Pulse Resp B/P B/P Pulse O2 O2 Flow FiO2 Mean Ox Delivery Rate 11/04 0832 68 138/78 11/04 0658 96.0 80 20 150/80 96 Room Air Intake & Output 11/04 1600 11/04 0800 11/04 0000 Intake Total 600 120 240 Output Total Balance 600 120 240 Intake, Oral 600 120 240 Physical Exam General Appearance: Alert, Oriented X3, Cooperative, No Acute Distress Assessment/Plan Assessment: 67 year of age female with past medical history of HTN, HLD, Pencillin allergy presented to emergency departement with chief complaint of redness and LLE swelling. Redness from ankle to thigh since 24 hours. She correlate it with recent history of travel in airplane and shuttle for 22 hour. At the time of presentaion to PCP office her Tmax was 101.5F. Problem list/Assessment/: =Left lower extremity nonpurulent cellulitis = Hypotonic hyponatremia =PMH of HTN, HLD =LLE Cellulitis -Pt has penicillin allergy, thus is on IV doxycycline. She was also treated for cellulitis in 2017 with doxycyclin. She is now on oral doxycycline for 7 days. Leukocyte trending down, fever subsided, there is no pain. =Hyponatremia -Hyponatremia subsided, it was may be due to a HCTZ. HCTZ was stopped, patient consult regarding new antihypertensive on outpatient basis by her primary care physician -Patient will be discharged to home today after PT evaluation. -Patient counseled if left leg swelling aggravated, painful, numbness, paresthesia and please seek medical attention -Follow-up with PCP in 1 week -Continue others medication -Keep left leg elevated. -Full code Problem List: 1. Cellulitis Pain Ratin Pain Location: N/A Pain Goal: Remain pain free Pain Plan: PAIN MED Tomorrow's Labs & Rationales: N/A Zully Rhoades 11/04/17 1547: Attending MD Review Statement Attending Statement Attending MD Statement: examined this patient, discuss w/resident/PA/DIRECTOR LOSS PREVENTION, agreed w/resident/PA/DIRECTOR LOSS PREVENTION, reviewed EMR data (avail), discussed with nursing, discussed with case mgmt Attending Assessment/Plan: Cellulitis Lt LE - plan dc on oral abx for total of 7 days. Hyponatremia- resolved. hold hctz at dc. d/w pt the care plan.
[2017-11-04 09:00] LABS: ABSOLUTE BASOPHIL COUNT 0 /CUMM (0.0-0.2); ABSOLUTE EOSINOPHIL COUNT 0.2 /CUMM (0.0-0.7); ABSOLUTE GRANULOCYTE CT 4.3 /CUMM (1.4-6.5); ABSOLUTE LYMPH COUNT 2.8 /CUMM (1.2-3.4); ABSOLUTE MONOCYTE COUNT 0.6 /CUMM (0.10-0.60); BASOPHIL % 0.5 % (0.0-2.0); EOSINOPHIL % 2.3 % (0-5); GRANULOCYTE % 53.9 % (42.2-75.2); HEMATOCRIT 38.3 % (37-47); MEAN CORPUSCULAR HGB 30.2 PG (27.0-31.0); MEAN CORPUSCULAR HGB CONC 33.5 G/DL (33.0-37.0); MEAN CORPUSCULAR VOLUME 90.3 FL (81.0-99.0); MEAN PLATELET VOLUME 7.9 FL (7.4-10.4); PLATELET COUNT 265 /CUMM (130-400); RBC DISTRIBUTION WIDTH 13.4 % (11.5-14.5); RED BLOOD CELL CT 4.25 /CUMM (4.20-5.40)
[2017-11-04] MEDS ORDERED: DOXYCYCLINE HY100 M2 PO (11:01)
--- NOTE | 2017-11-04 11:04 | Patient Discharge Instructions ---
Discharge Instructions General Discharge Information You were seen/treated for: LEG CELLULITIS Special Instructions: Please follow up with your PCP within 1 week after discharge Please finish your antibiotics course Please seek medical attention if your leg swelling/redness/pain worsens Your hydrochlorothiazide has been discontinued due to low sodium, please check with your primary care doctor on the need to restartr it Acute Coronary Syndrome Inclusion Criteria At DC or during hospital stay patient has or had the following: Discharge Core Measures Meds if any: Prescribed or Continued at Discharge Meds if any: NOT Prescribed or Continued at Discharge Congestive Heart Failure Inclusion Criteria At DC or during hospital stay patient has or had the following: Discharge Core Measures Meds if any: Prescribed or Continued at Discharge Meds if any: NOT Prescribed or Continued at Discharge Cerebrovascular accident Inclusion Criteria At DC or during hospital stay patient has or had the following: CVA/TIA Diagnosis No Discharge Core Measures Meds if any: Prescribed or Continued at Discharge Meds if any: NOT Prescribed or Continued at Discharge Venous thromboembolism Discharge Core Measures - Per Current guidelines, there needs to be overlap - treatment for the first 5 days of Warfarin therapy. - If discharged on Warfarin prior to 5 days of - overlap therapy, the patient will need to be - assessed for post discharge needs including - *Post discharge parental anticoagulation - *Warfarin and/or parental anticoagulation education - *Follow up date to check INR post discharge Meds if any: Prescribed or Continued at Discharge Note: Overlap Therapy is Warfarin and Anticoagulant Meds if any: NOT Prescribed or Continued at Discharge
--- NOTE | 2017-11-04 11:47 | Discharge Summary ---
Visit Information Visit Dates Admission Date: 10/31/17 Discharge Date: 11/04/2017 Hospital Course Course Attending Physician: West Padilla MD Primary Care Physician: Yue Martinez Hospital Course: 67-year-old female past medical history of hyperlipidemia, hypertension, left knee replacement presented to emergency department with a complaint of left lower extremity redness, swelling, pain since 24 hour. She was correlating this with travel in airplane as well as in a car for long time . She had the same episode of cellulitis in left lower extremity in 2017 . Initially she also having fever and chills. She denies any laceration or discharge. At the time of presentation to emergency department her temperature was 101.5F, remaining vitally she was stable. Her labs were significant for low sodium level and leukocytosis. Hydration started. She shifted to general medicine floor. Her hyponatremia corrected by gentle hydration because it was hypovolemic hyponatremia. She started on doxycycline oral medication because she is allergic to penicillin, her previous episode also responded to doxycycline. On the third day of admission her pain in the left leg subsided, redness improved, leukocytosis trended down. She denies fever, chills, pus discharge from cellulitis area,, loose motion, burning micturition. She is feeling well now. We advise PT evaluation but she denied that she do not need PT evaluation and she is doing great. We will discharge her today on oral antibiotic doxycycline to complete 7 days course. Patient counseled regarding clean hygiene, left leg elevation, mobility of the her comfort level, and her antihypertensive medication HCTZ discontinued and recommended to follow-up with her PCP for hypertension medication if needed. Patient will go home on her discharge medication. Allergies: Coded Allergies: iodine (Intermediate, RASH 04/18/16) Penicillins (RASH 10/31/17) crab (RASH 10/31/17) Disposition Summary Disposition Principal Diagnosis: LLE cellulitis Additional Diagnosis: HTN, Discharge Disposition: home or self care Discharge Instructions General Discharge Information Code Status: Full Code Patient's Diet: Regular diet Patient's Activity: Ambulate to her comfort level Follow-Up Instructions/Appts: Follow-up with primary care physician in 1 week; She should need medical attention if she got severe pain in the left lower extremity or any aggravation and swelling of left lower extremity. HCTZ was discontinued and she advised to discuss with her primary care position. Medications at Discharge Discharge Medications: Stop taking the following medications: Hydrochlorothiazide (Hydrochlorothiazide) 12.5 MG TABLET ORAL DAILY Continue taking these medications: Aspirin (Ecotrin*) 81 MG TABLET.DR 1 Tablet ORAL Every night Multiple Vitamin (Multivitamins) 1 EACH TABLET 1 Tablet ORAL Every Morning Meloxicam (Mobic) 7.5 MG TABLET 1 Tablet ORAL DAILY as needed for PAIN/INFLAMMATION Tramadol HCl (Tramadol HCl) 50 MG TABLET 1 Tablet ORAL TWICE DAILY as needed for PAIN Metoprolol Succ XL (Toprol XL) 25 MG TAB 1 Tablet ORAL DAILY Simvastatin (Zocor*) 20 MG TABLET 1 Tablet ORAL DAILY Start taking the following new medications: Doxycycline Hyclate (Doxycycline Hyclate) 100 MG CAPSULE 100 Milligram ORAL TWICE DAILY Qty = 7 No Refills Comments: last given 11/04/17 @ [id number] Copies To: Rosa BROWNE,Yue Minaya
== END 2017-11-04 15:26 | DRG 603 ==
LOC: ERH 15:22 → ENRESERV 19:13 → ERHI 19:33 → 2NB 19:33 → ENTRNSPT 19:59 → EDTRNSPTSTS 20:21 → EDTRNSPT 20:21 → CMPTRNSPT 20:23 → 2NB 20:39 → ENPENDDIS 11-04 13:25 → ENTRNSPT 11-04 15:20 → 2NB 11-04 15:26 → CMPTRNSPT 11-04 15:31
PROVIDERS: Hospitalist; Physician Assistant Medical; Student in an Organized Health Care Education/Training Program
DX: L03.116 Cellulitis of left lower limb (principal); E87.1 Hypo-osmolality and hyponatremia; Z68.41 Body mass index [BMI] 40.0-44.9, adult; E86.0 Dehydration; E87.6 Hypokalemia; I10 Essential (primary) hypertension; E78.5 Hyperlipidemia, unspecified; T50.2X5A Adverse effect of carbonic-anhydrase inhibitors, benzothiadiazides and other diuretics, initial encounter; E66.9 Obesity, unspecified; Z88.0 Allergy status to penicillin; Z79.82 Long term (current) use of aspirin
CPT/HCPCS: 2NBP; 84133; 84300; 36415; 36592; 82436; 82570; 87040; 93005; 93010; J0131; J0696; J1650; J3101